=== PATIENT | female | born 1995 | race Caucasian/White ===

== ENCOUNTER 2016-08-26 21:50 | Emergency (ER) | payer MEDICAID ==
[2016-08-26 23:13] LABS: APPEARANCE,URINE SLIGHTLY-CLOUDY; BILIRUBIN,URINE NEGATIVE (NEGATIVE); GLUCOSE, URINE NEGATIVE (NEGATIVE); KETONES,URINE NEGATIVE (NEGATIVE); LEUKOCYTE ESTERASE,URINE LARGE (NEGATIVE); NITRITE,URINE NEGATIVE (NEGATIVE); PROTEIN,URINE NEGATIVE (NEGATIVE); URINE SPECIFIC GRAVITY 1.036
[2016-08-26] MEDS ORDERED: AZITHROMYCIN 1 GM SUSP PACKET PO ONE (23:38)
[2016-08-26] MEDS ORDERED: CEFTRIAXONE INJ 250 MG VIAL IM ONE (23:38)
--- NOTE | 2016-08-26 23:40 | ER Document Report ---
ED GI/ - General Information source: Patient TRAVEL OUTSIDE OF THE [place] IN LAST 30 DAYS: No - HPI Patient complains to provider of: Vaginal discharge Onset: Other - 2 days ago Timing/Duration: Gradual, Worse Associated symptoms: Other - See narrative - General Chief Complaint: Vaginal Discharge Stated Complaint: LEFT FLANK PAIN,VAGINAL DISCHARGE,BURNING Notes: Patient is a 20-year-old female presenting to the emergency department concerned of vaginal discharge onset 2 days ago. Patient states that since onset, she is developed a burning sensation and a bad odor. Patient has a history of bacterial vaginosis. Patient also states she has a history of gonorrhea and chlamydia years ago. Patient reports her last menstrual cycle starting 3 weeks ago, and she recently moved here, so she does not have a primary care physician yet. (RITIKA ROBBINS) - Related Data Allergies/Adverse Reactions: No Known Drug Allergies Adverse Reaction (Verified 08/26/16 23:09) Past Medical History - General Information source: Patient, [facility] Records - Social History Smoking Status: Never Smoker Chew tobacco use (# tins/day): No Frequency of alcohol use: None Drug Abuse: None Family History: Reviewed & Not Pertinent Patient has suicidal ideation: No Patient has homicidal ideation: No Review of Systems - Review of Systems Constitutional: No symptoms reported EENT: No symptoms reported Cardiovascular: No symptoms reported Respiratory: No symptoms reported Gastrointestinal: No symptoms reported Genitourinary: See HPI, Burning Female Genitourinary: See HPI, Vaginal discharge, Vaginal odor Musculoskeletal: No symptoms reported Skin: No symptoms reported Hematologic/Lymphatic: No symptoms reported Neurological/Psychological: No symptoms reported -: Yes All other systems reviewed and negative Physical Exam - Vital signs Interpretation: Normal - General General appearance: Appears well, Alert - HEENT Head: Normocephalic, Atraumatic Eyes: Normal Pupils: PERRL - Respiratory Respiratory status: No respiratory distress Chest status: Nontender Breath sounds: Normal Chest palpation: Normal - Cardiovascular Rhythm: Regular Heart sounds: Normal auscultation Murmur: No - Abdominal Inspection: Normal Distension: No distension Bowel sounds: Normal Tenderness: Nontender Organomegaly: No organomegaly - Genitourinary External exam: Normal Speculum exam: Vaginal discharge - Whitish yellow Vaginal bleeding: None - Back Back: Normal, Nontender - Extremities General upper extremity: Normal inspection, Nontender General lower extremity: Normal inspection, Nontender - Neurological Neuro grossly intact: Yes Cognition: Normal Orientation: AAOx4 Jie Coma Scale Eye Opening: Spontaneous Jie Coma Scale Verbal: Oriented [place] Coma Scale Motor: Obeys Commands [place] Coma Scale Total: 15 Speech: Normal - Psychological Associated symptoms: Normal affect, Normal mood - Skin Skin Temperature: Warm Skin Moisture: Dry Skin Color: Normal Course - Re-evaluation Re-evalutation: 08/26/16 23:41 Patient presents to the emergency department with a chief kind of burning with urination and vaginal discharge. Says she has a history gonorrhea and chlamydia and recurrent bacterial vaginosis. Says she has no new sexual partners painful intercourse. She denies any flank pain fevers chills nausea vomiting abdominal pain or diarrhea. On examination well-appearing nontoxic stable vitals afebrile abdomen soft no acute tenderness guarding or rigidity pelvic examination no vaginal bleeding moderate amount of yellowish white vaginal discharge with cervical motion tenderness or left adnexal tenderness or fullness. She is not she does have a UTI and treated with Rocephin and Zithromax Macrobid and Flagyl for primary care physician in 2-3 days discuss treatment of sexual partners. Discussed reasons for ED return sooner (HARITHA DARDEN) - Vital Signs Vital signs: Temp Pulse Resp BP Pulse Ox 98.0 F 79 16 119/74 100 08/27/16 00:20 08/27/16 00:20 08/27/16 00:20 08/27/16 00:20 08/27/16 00:20 - Laboratory Laboratory results interpreted by me: 08/26/16 22:57 Urine Urobilinogen 2.0 H Ur Leukocyte Esterase LARGE H Urine Ascorbic Acid 20 H Procedures - Pelvic Exam Pelvic exam Time completed: 23:30 Cultures obtained: Yes Herpes culture obtained: Yes Witnessed by: Ritika Robbins - Pelvic Exam Pelvic exam Notes: 08/27/16 00:47 whitish yellow discharge, malodor (RITIKA ROBBINS) Discharge - Discharge Clinical Impression: cervicitis, UTI Condition: Stable Disposition: HOME, SELF-CARE Additional Instructions: Urinary Tract Infection Your evaluation indicates that you have a urinary tract infection. This is due to germs growing in the bladder. This is a common problem. This infection usually responds quickly to antibiotics. Your antibiotic should be taken exactly as prescribed. Drink plenty of fluids -- three to four quarts a day. Occasionally, a bladder anesthetic will be prescribed to help stop the feeling of urgency until the antibiotic has a chance to clear the infection. This may cause your urine to be dark orange. Certain urine infections require a culture. If the doctor obtained a culture, the results will be back in two days. You should call to see if a change in treatment is needed. A repeat urinalysis after you finish treatment is often recommended. The physician will let you know if further testing is required. Call the doctor if you develop fever, chills, flank pain, inability to urinate, or blood in the urine. Vaginitis Your exam shows that you have vaginitis, a vaginal infection. The infection can be caused by a many different organisms, including trichomonas or Gardnerella. The usual symptoms are vaginal irritation and discharge. The treatment is usually antibiotics such as Flagyl. Laboratory tests can determine which germ is responsible. Use the medication as prescribed. Because this infection can be transmitted sexually, your sexual partner may need to be checked and treated also. If your physician has not discussed this with you, please check before resuming sexual relations. If a culture shows gonorrhea or chlamydia, the infection must be reported to the health department. Call the doctor if you develop pelvic pain, fever, or problems with urination, or if you don't improve as expected. Prescriptions: Metronidazole [Flagyl 500 mg Tablet] 500 mg PO Q6H #28 tablet Nitrofurantoin/Nitrofuran Mac [Macrobid 100 mg Capsule] 1 tab PO BID #20 capsule Referrals: [facility] [Provider Group] (in 2-3 days return to er sooner for increasing worsening or new symptoms) Joseibe Attestation: 08/26/16 23:41 I personally performed the services described in the documentation reviewed the documentation recorded by my scribe in my presence and it accurately and completely records my words and actions (HARITHA DARDEN)
[2016-08-27 00:24] VITALS: BP 119/74
[2016-08-27] MEDS ORDERED: FLUCONAZOLE 100 MG TABLET PO ONE (00:25)
[2016-08-27 01:22] LABS: CHLAM PCR NOT DETECTED (NOT DETECT)
== END 2016-08-27 00:30 | disposition home or self-care (01) ==
LOC: ER 21:50
DX: N72 Inflammatory disease of cervix uteri (principal); N39.0 Urinary tract infection, site not specified
CPT/HCPCS: 99284; 96372; 87210; 81025; 81001; 87491; 87591; Q0144; J0696; J3490